=== PATIENT | female | born 1980 | race American Indian/Alaskan Native ===

== ENCOUNTER 2016-10-17 18:20 | Emergency (ER) | payer OTHER ==
[2016-10-17 18:29] VITALS: BMI 42.5
[2016-10-17 18:32] VITALS: PULSE 100; TEMP 97.6
[2016-10-17] MEDS ORDERED: Naproxen 550 mg Tab PO STA (19:30)
[2016-10-17] MEDS ORDERED: Naproxen 550 mg Tab PO ONE (19:37)
--- NOTE | 2016-10-17 20:12 | C.PDOC ---
History Of Present Illness 36 y/o female presents to ED with complaints of bilateral knee pain and lower back pain beginning [employer]. Patient states she slipped on wet floor and right knee hit ground while left leg went out. Patient states back feels "sore" and pain is worse with movement. Patient denies sensation changes, chest pain, abdominal pain, urinary bowel incontinence or any other complaints at this time. Time Seen by Provider: 10/17/16 19:17 Chief Complaint (Nursing): Lower Extremity Problem/Injury History Per: Patient History/Exam Limitations: no limitations Onset/Duration Of Symptoms: Hrs Current Symptoms Are (Timing): Still Present Past Medical History Reviewed: Historical Data, Nursing Documentation, Vital Signs Vital Signs: Last Vital Signs Temp 97.6 F 10/17/16 18:29 Pulse 100 H 10/17/16 18:29 Resp 18 10/17/16 18:29 BP Pulse Ox 100 10/17/16 20:18 - Medical History PMH: HTN, Hyperlipidemia Family History: States: No Known Family Hx - Social History Hx Alcohol Use: Yes Hx Substance Use: No - Immunization History Hx Tetanus Toxoid Vaccination: No Hx Influenza Vaccination: Yes Hx Pneumococcal Vaccination: No Review Of Systems Except As Marked, All Systems Reviewed And Found Negative. Eyes: Negative for: Vision Change Cardiovascular: Negative for: Chest Pain Gastrointestinal: Negative for: Nausea, Vomiting, Abdominal Pain, Diarrhea Genitourinary: Negative for: Incontinence Musculoskeletal: Positive for: Back Pain Skin: Negative for: Rash Physical Exam - Physical Exam Appears: Non-toxic, No Acute Distress (on phone sitting comfortably) Skin: Normal Color, Warm, Dry Head: Atraumatic, Normacephalic Eye(s): bilateral: Normal Inspection, EOMI Nose: Normal Oral Mucosa: Moist Neck: Normal ROM, No Midline Cervical Tenderness, No Step Off Deformity, Supple Chest: Symmetrical Cardiovascular: Rhythm Regular Respiratory: Normal Breath Sounds Gastrointestinal/Abdominal: Soft, No Tenderness Back: No Vertebral Tenderness, Other (Paralumbar tenderness) Extremity: Normal ROM, Tenderness (Diffuse tenderness to right anterior knee), Capillary Refill (<2 seconds), No Deformity, No Swelling Extremity: Bilateral: Atraumatic, Normal Color And Temperature, Normal ROM Pulses: Left Dorsalis Pedis: Normal, Right Dorsalis Pedis: Normal Neurological/Psych: Oriented x3, Normal Speech, Normal Motor, Normal Sensation ED Course And Treatment O2 Sat by Pulse Oximetry: 100 (RA) - Other Rad LS Spine X-Ray: Interpreted by Me, Viewed By Me Interpretation: No fracture or dislocation knee X-Ray: Interpreted by Me, Viewed By Me Interpretation: No fracture or dislocation to bilateral knee Progress Note: Naprosyn ordered. On re-evlauation pain improved. No change in sensation. No symptoms. Patient discharged and advised to follow up with Ortho in 1-2 days. Reevaluation Time: 20:17 Reassessment Condition: Improved Disposition - Disposition Disposition: HOME/ ROUTINE Disposition Time: 21:11 Condition: STABLE Additional Instructions: Rest, ice and elevate the area. Follow up with PMD in 1-2 days. Return to ER if symptoms persist or worsen. Prescriptions: Naproxen [Naprosyn] 1 tab PO BID PRN #20 tab PRN Reason: Pain Instructions: Contusion in Adults (ED) Forms: Work Excuse - Clinical Impression Clinical Impression: Bilateral knee pain, Back pain - Scribe Statement The provider has reviewed the documentation as recorded by the Germánibmaritza Aceves All medical record entries made by the Germánibmaritza were at my direction and personally dictated by me. I have reviewed the chart and agree that the record accurately reflects my personal performance of the history, physical exam, medical decision making, and the department course for this patient. I have also personally directed, reviewed, and agree with the discharge instructions and disposition.
[2016-10-17 21:06] VITALS: BP 101/73; RESP 16
[2016-10-17 21:09] VITALS: O2SAT 100
--- NOTE | 2016-10-18 12:30 | RAD ---
PROCEDURE: Bilateral Knee Radiographs. Send HISTORY: trauma COMPARISON: None. FINDINGS: BONES: Right Knee: Normal. No fracture. No dislocation. Left Knee: Normal. No fracture. No dislocation. JOINTS: Right Knee: Normal. No osteoarthritis. Left knee: Normal. No osteoarthritis. SOFT TISSUES: Right Knee: Normal. Left Knee: Normal. JOINT EFFUSION: Right Knee: None. Left Knee: None. OTHER FINDINGS: None. IMPRESSION: Normal radiographs of the knees.
--- NOTE | 2016-10-18 12:32 | RAD ---
PROCEDURE: Radiographs of the Lumbar Spine. HISTORY: trauma COMPARISON: No prior. FINDINGS: BONES: Normal alignment. No listhesis. No fracture. DISC SPACES: Unremarkable. OTHER FINDINGS: None. IMPRESSION: Unremarkable radiographs of the lumbar spine. If there is clinical concern for lumbar spinal injury remaining then follow-up MRI may be performed as clinically warranted.
== END 2016-10-17 21:37 | disposition home or self-care (01) ==
LOC: C.ER 18:20
DX: M54.5 Low back pain (principal); M25.562 Pain in left knee; M25.561 Pain in right knee